=== PATIENT | male | born 1945 | race Caucasian/White ===

== ENCOUNTER → 2017-05-20 | Outpatient (CLI) | payer OTHER ==
--- NOTE | ~2017-05-20 | 2DMMODE ---
[facility] [place] [address] 2 D/M-MODE ECHOCARDIOGRAM Name: FERNANDABRIJESH Ofelia Room #: [facility] [id number] Admission: 05/20/17 Attend Phys: Manuel Stallworth Discharge: Date of : 49 Date of Service: 05/20/17 1219 Report #: [id number] THIS REPORT FOR: //name// APPROVED REPORT Study performed: 05/20/2017 09:59:21 EXAM: Comprehensive 2D, Doppler, and color-flow Echocardiogram Patient Location: Out-Patient Status: routine BSA: 2.21 HR: 57 bpm BP: 135/82 mmHg Rhythm: NSR Other Information Study Quality: AdequateGood Indications Cardiomyopathy Hx: CAD/stent 2D Dimensions RVDd: 37.47 mm LVEF(%): 61.20 (>50%) IVSd: 9.76 (7-11mm) LVOT Diam: 21.42 (18-24mm) LVDd: 58.84 mm PWd: 8.87 (7-11mm) Ascending Ao: 33.55 (22-36mm) LVDs: 39.22 (25-40mm) Aortic Root: 32.90 mm Hillman's LVEF: 61.20 % Volumes Left Atrial Volume (Systole) Single Plane 4CH: 42.72 mL Single Plane 2CH: 81.53 mL LA ESV Index: 31.00 mL/m2 Aortic Valve AoV Peak Lalo.: 1.28 m/s AO Peak Gr.: 6.51 mmHg LVOT Max P.43 mmHg LVOT Max V: 0.93 m/s MARLEEN Vmax: 2.62 cm2 Mitral Valve E/A Ratio: 0.8 [facility] [address] [address] 2 D/M-MODE ECHOCARDIOGRAM Name: BRIJESH MICHAEL Room #: [facility]#: [id number] Admission: 05/20/17 Attend Phys: Manuel Stallworth Discharge: Date of : 49 Date of Service: 05/20/17 1219 Report #: [id number] MV Decel. Time: 244.84 ms MV E Max Lalo.: 0.73 m/s MV A Lalo.: 0.95 m/s MV PHT: 71.00 ms IVRT: 96.89 ms Pulmonary Valve PV Peak Lalo.: 1.19 m/s PV Peak Gr.: 5.65 mmHg Pulmonary Vein P Vein S: 0.46 m/s P Vein A: 0.30 m/s P Vein D: 0.37 m/s P Vein A Dur.: 152.2 msec P Vein S/D Ratio: 1.24 Tricuspid Valve RAP Estimate: 5.00 mmHg Left Ventricle The left ventricle is normal size. There is normal left ventricular wall thickness. Left ventricular systolic function is mildly decreased. LVEF is 45%. Grade I - abnormal relaxation pattern. Right Ventricle The right ventricle is normal size. The right ventricular systolic function is normal. Atria The left atrium size is normal. The right atrium size is normal. Aortic Valve Aortic valve is mildly thickened and calcified. No aortic regurgitation is present. There is no aortic valvular stenosis. Mitral Valve The mitral valve is normal in structure. There is no mitral valve regurgitation noted. No evidence of mitral valve stenosis. Tricuspid Valve The tricuspid valve is normal in structure. Unable to assess PAP due to no tricuspid valve regurgitation. Pulmonic Valve The pulmonary valve is normal in structure. There is no pulmonic valvular regurgitation. [facility] [address] [place] [address] 2 D/M-MODE ECHOCARDIOGRAM Name: BRIJESH MICHAEL Room #: [facility]#: [id number] Admission: 05/20/17 Attend Phys: Manuel Stallworth Discharge: Date of : 49 Date of Service: 05/20/17 1219 Report #: [id number] Great Vessels The aortic root is normal in size. The ascending aorta is normal in size. IVC is normal in size and collapses >50% with inspiration. Pericardium There is no pericardial effusion. <Conclusion> The left ventricle is normal size. LVEF is 45%. Left ventricular systolic function is mildly decreased. Aortic valve is mildly thickened and calcified. No aortic regurgitation is present. There is no aortic valvular stenosis. The mitral valve is normal in structure. The tricuspid valve is normal in structure. Unable to assess PAP due to no tricuspid valve regurgitation. The pulmonary valve is normal in structure. There is no pericardial effusion. <ELECTRONICALLY SIGNED> By: Manuel York MD 05/20/17 1219 18 Manuel York MD /INF
== END ==
LOC: CV 05-08 09:48
DX: I42.9 Cardiomyopathy, unspecified (principal); I25.10 Atherosclerotic heart disease of native coronary artery without angina pectoris

== ENCOUNTER → 2018-05-12 | Outpatient (CLI) | payer OTHER ==
--- NOTE | 2018-05-12 09:41 | 2DMMODE ---
[place] [address] 2 D/M-MODE ECHOCARDIOGRAM Name: FERNANDABRIJESH Ofelia Room #: [facility]#: [id number] Admission: 05/12/18 Attend Phys: Manuel Stallworth Discharge: Date of : 49 Date of Service: 05/12/18 0941 Report #: [id number] THIS REPORT FOR: //name// APPROVED REPORT Study performed: 05/12/2018 09:01:14 EXAM: Comprehensive 2D, Doppler, and color-flow Echocardiogram Patient Location: Out-Patient Status: routine BSA: 2.21 HR: 65 bpm BP: 128/78 mmHg Rhythm: NSR Other Information Study Quality: Adequate Indications Cardiomyopathy. Hx: CAD, stent, HTN, HLP. 2D Dimensions RVDd: 36.67 mm IVSd: 11.74 (7-11mm) LVOT Diam: 21.61 (18-24mm) LVDd: 52.81 mm PWd: 11.02 (7-11mm) Ascending Ao: 32.87 (22-36mm) LVDs: 43.36 (25-40mm) Aortic Root: 39.37 mm Volumes Left Atrial Volume (Systole) Single Plane 4CH: 56.26 mL Single Plane 2CH: 72.14 mL LA ESV Index: 31.00 mL/m2 Aortic Valve AoV Peak Lalo.: 1.68 m/s AO Peak Gr.: 11.34 mmHg LVOT Max P.75 mmHg LVOT Max V: 0.83 m/s MARLEEN Vmax: 1.80 cm2 Mitral Valve E/A Ratio: 0.6 MV Decel. Time: 167.97 ms MV E Max Lalo.: 0.56 m/s [email or web address] [place] [address] 2 D/M-MODE ECHOCARDIOGRAM Name: FERNANDABRIJESH Gilbert Room #: [facility]#: [id number] Admission: 05/12/18 Attend Phys: Manuel Stallworth Discharge: Date of : 49 Date of Service: 05/12/18 0941 Report #: [id number] MV A Lalo.: 0.94 m/s MV PHT: 48.71 ms IVRT: 124.57 ms Pulmonary Valve PV Peak Lalo.: 1.13 m/s PV Peak Gr.: 5.15 mmHg Pulmonary Vein P Vein S: 0.63 m/s P Vein D: 0.37 m/s P Vein S/D Ratio: 1.70 Tricuspid Valve RAP Estimate: 5.00 mmHg Left Ventricle The left ventricle is normal size. Regional wall motion abnormalities are noted in the basilar anterolateral and septal segments. There is normal left ventricular wall thickness. Left ventricular systolic function is mildly decreased. LVEF is 45-50%. Mild diastolic dysfunction is present (impaired relaxation pattern). Right Ventricle The right ventricle is normal size. The right ventricular systolic function is normal. Atria The left atrium size is normal. The right atrium size is normal. Aortic Valve Aortic valve leaflets are mildly thickened and calcified. No aortic regurgitation is present. There is no aortic valvular stenosis. Mitral Valve The mitral valve is normal in structure. There is no mitral valve regurgitation noted. No evidence of mitral valve stenosis. Tricuspid Valve The tricuspid valve is normal in structure. There is no tricuspid valve regurgitation noted. Unable to assess PA pressure. Pulmonic Valve The pulmonary valve is normal in structure. There is no pulmonic valvular regurgitation. [address] [place] [address] 2 D/M-MODE ECHOCARDIOGRAM Name: BRIJESH MICHAEL Room #: [facility]#: [id number] Admission: 05/12/18 Attend Phys: Manuel Stallworth Discharge: Date of : 49 Date of Service: 05/12/18 0941 Report #: [id number] Great Vessels Aortic root is borderline dilated. The ascending aorta is normal in size. IVC is normal in size and collapses >50% with inspiration. Pericardium There is no pericardial effusion. <Conclusion> The left ventricle is normal size. LVEF is 45-50%. Regional wall motion abnormalities are noted in the basilar anterolateral and septal segments. Aortic valve leaflets are mildly thickened and calcified. No aortic regurgitation is present. There is no aortic valvular stenosis. The mitral valve is normal in structure. There is no mitral valve regurgitation noted. The tricuspid valve is normal in structure. There is no tricuspid valve regurgitation noted. Unable to assess PA pressure. The pulmonary valve is normal in structure. Aortic root is borderline dilated. The ascending aorta is normal in size. There is no pericardial effusion. <ELECTRONICALLY SIGNED> By: Manuel York MD 05/12/1841 0 0 Manuel York MD /INF
== END ==
LOC: CV 08:44
DX: I35.8 Other nonrheumatic aortic valve disorders (principal); I42.9 Cardiomyopathy, unspecified; I10 Essential (primary) hypertension; E78.5 Hyperlipidemia, unspecified; I25.10 Atherosclerotic heart disease of native coronary artery without angina pectoris

== ENCOUNTER → 2019-05-18 | Outpatient (CLI) | payer OTHER | LOC: SJCVCIMAG 08:31 | DX: I11.0 Hypertensive heart disease with heart failure (principal); I50.20 Unspecified systolic (congestive) heart failure; I25.5 Ischemic cardiomyopathy; R94.31 Abnormal electrocardiogram [ECG] [EKG]; E78.5 Hyperlipidemia, unspecified; E11.9 Type 2 diabetes mellitus without complications; E78.00 Pure hypercholesterolemia, unspecified; Z79.82 Long term (current) use of aspirin; Z79.899 Other long term (current) drug therapy; Z79.84 Long term (current) use of oral hypoglycemic drugs ==

== ENCOUNTER → 2021-02-18 | Outpatient (CLI) | payer OTHER | LOC: SJCVCIMAG 09:52 | PROVIDERS: ATTEND Internal Medicine | DX: I10 Essential (primary) hypertension (principal); E78.5 Hyperlipidemia, unspecified; I25.10 Atherosclerotic heart disease of native coronary artery without angina pectoris; I42.9 Cardiomyopathy, unspecified ==